=== PATIENT | female | born 1955 | race Caucasian/White ===

== ENCOUNTER 2020-02-09 10:19 | Emergency (ER) | payer OTHER ==
[~2020-02-09] VITALS: Ht 172.7 cm; Wt 87.1 kg
[2020-02-09] MEDS ORDERED: INDAPAMIDE2.5 MG (10:55)
[2020-02-09] MEDS ORDERED: TENORMIN25 MG (10:55)
== END 2020-02-09 14:54 | disposition home or self-care (01) ==
LOC: ER 10:19
DX: S00.83XA Contusion of other part of head, initial encounter (principal); R55 Syncope and collapse; W18.39XA Other fall on same level, initial encounter; Y93.89 Activity, other specified; Y92.091 Bathroom in other non-institutional residence as the place of occurrence of the external cause; Y99.8 Other external cause status